=== PATIENT | female | born 1945 | race Caucasian/White ===

== ENCOUNTER 2018-08-15 11:36 | Emergency (ER) | payer OTHER ==
[~2018-08-15] VITALS: Ht 167.6 cm; Wt 82.7 kg
[2018-08-15 11:42] VITALS: BP 184/81; PULSE 81; RESP 20; Ht 167.6 cm; Wt 82.7 kg
[2018-08-15] MEDS ORDERED: ACETAMINOPHEN 500 MG TAB PO STA (13:14)
[2018-08-15] MEDS ORDERED: D-ME473S2 PO (13:16)
[2018-08-15] MEDS ORDERED: AZIT250T PO (13:16)
[2018-08-15] MEDS ORDERED: BENZ-6 PO (13:16)
[2018-08-15] MEDS ORDERED: ACET500C5 PO (13:16)
--- NOTE | 2018-08-15 13:19 | ERD ---
ER Documentation Chief Complaint Chief Complaint Complains of a cough x 5 days HPI This is a 73-year-old female with a history of hypertension presents ED with complaints of cough with sputum production times 6 days. Patient admits to some nasal congestion and mild headache. Denies fever, chills, runny nose, ear pain, sore throat, nausea, vomiting, diarrhea, constipation, abdominal pain, shortness of breath, trouble breathing, chest pain and all the symptoms. No known drug allergies. ROS All systems reviewed and are negative except as per history of present illness. Medications Home Meds Active Scripts Azithromycin* (Zithromax*) 250 Mg Tablet, 250 MG PO .ZPACK DIRECTED, #6 TAB TAKE 500 MG (2 TABS) THE FIRST DAY THEN 250 MG (1 TAB) DAYS 2-5 Prov:ANGELA BAL PA-C 08/15/18 Benzonatate* (Tessalon Perle*) 100 Mg Capsule, 100 MG PO Q8H PRN for COUGH for 3 Days, CAP Prov:ANGELA BAL PA-C 08/15/18 Acetaminophen* (Tylophen*) 500 Mg Capsule, 1 CAP PO Q6H PRN for PAIN AND OR ELEVATED TEMP, #20 CAP Prov:ANGELA BAL PA-C 08/15/18 Dextromethorphan Hb-Promethazine Hcl* (Promethazine DM* Syrup) 473 Ml Syrup, 5 ML PO Q6 PRN for COUGH for 5 Days, ML Prov:ANGELA BAL PA-C 08/15/18 Allergies Allergies: Coded Allergies: No Known Allergy (Unverified , 08/15/18) PMhx/Soc History of Surgery: No Hx Neurological Disorder: No Hx Respiratory Disorders: No Hx Alcohol Use: No Hx Substance Use: No Hx Tobacco Use: No FmHx Family History: No diabetes Physical Exam Vitals Vital Signs Date Temp Pulse Resp B/P (MAP) Pulse Ox O2 O2 Flow FiO2 Time Delivery Rate 08/15/18 98.1 81 20 184/81 97 11:42 (115) Physical Exam Physical Exam Vitals signs: Reviewed by me. General: Well developed, well nourished, in no acute distress. Patient is awake and alert. Head: Normocephalic, atraumatic. Eyes: Normal conjunctiva, Pupils PERRLA, EOM intact grossly ENT: Pharynx is clear, Moist mucous membranes, external ears, nose and mouth normal Neck: Supple, no masses, lymphadenopathy or JVD Respiratory: Clear to auscultation bilaterally with no wheezing, rhonchi, rales, no distress Cardiovascular: RRR, no murmurs, rubs, or gallops Skin: warm and dry, No rash Psych: Normal mood Results 24 hrs Current Medications Medications Dose Sig/Broderick Start Time Status Last (Trade) Ordered Route PRN Stop Time Admin Dose Reason Admin Promethazine 5 ml ONCE ONCE 08/15/18 HCl/ PO 13:30 Dextromethorp 08/15/18 13:31 tinsley (Phenergan-Dm ) Benzonatate 100 mg ONCE ONCE 08/15/18 (Tessalon) PO 13:30 08/15/18 13:31 1,000 mg ONCE STAT 08/15/18 DC Acetaminophen PO 13:14 (Tylenol 08/15/18 13:16 Tab) Procedures/MDM ER COURSE: The patient was given promethazine DM, Tessalon Perles and Tylenol The medication was well tolerated and the patient reports improvement in symptoms. The patient was stable throughout ED course. I kept the patient and/or family informed of laboratory and diagnostic imaging results throughout the emergency room course. The patient was promptly evaluated and a treatment plan was devised based on H&P and other data. This plan was discussed with the patient who agreed and had no further questions or concerns prior to discharge. MEDICAL DECISION MAKING: Symptoms are most likely consistent with acute bronchitis. Low suspicion for pneumonia, as lung sounds are clear at this time. Oxygen saturation is normal and patient does not have any respiratory distress. Advanced imaging is not indicated at this time. Low suspicion for other cardiopulmonary emergency such as pulmonary embolism, pneumothorax, tension pneumothorax, pleural effusion, pneumothorax, CHF, aortic aneurysm or other cardiopulmonary emergencies. No evidence of sepsis. Patient's vitals are stable he can be managed with close outpatient follow-up. Advised patient to follow-up with primary care in the next 48 hours. Return to ED with any worsening symptoms DISPOSITION PLAN: We discussed follow up with the patient's primary care doctor within 24 to 48 hours. Patient counseled regarding my diagnostic impression and care plan. Prior to discharge all questions answered. Pt agrees with treatment plan and understands strict return precautions. Precautionary instructions provided including instructions to return to the ER if not improving or for any worsening or changing symptoms or concerns. SPECIALIST FOLLOW UP RECOMMENDED: None Patient has been advised to follow up with primary care in 1-2 days. Disclaimer: Inadvertent spelling and grammatical errors are likely due to EHR/dictation software use and do not reflect on the overall quality of patient care. Also, please note that the electronic time recorded on this note does not necessarily reflect the actual time of the patient encounter. Blood Pressure Assessment: Patient's blood pressure was elevated (>120/80) but appears stable without evidence of hypertension emergency or urgency. The patient was counseled about the risks of hypertension and urged to pursue outpatient monitoring and therapy within a week with their primary care physician. Departure Diagnosis: Primary Impression: Acute bronchitis Bronchitis organism: unspecified organism Qualified Codes: J20.9 - Acute bronchitis, unspecified Condition: Stable Patient Instructions: Bronchitis, Antiobiotic Treatment (Adult) Referrals: [facility] YOU HAVE RECEIVED A MEDICAL SCREENING EXAM AND THE RESULTS INDICATE THAT YOU DO NOT HAVE A CONDITION THAT REQUIRES URGENT TREATMENT IN THE EMERGENCY DEPARTMENT. FURTHER EVALUATION AND TREATMENT OF YOUR CONDITION CAN WAIT UNTIL YOU ARE SEEN IN YOUR DOCTORS OFFICE WITHIN THE NEXT 1-2 DAYS. IT IS YOUR RESPONSIBILITY TO MAKE AN APPOINTMENT FOR FOLOW-UP CARE. IF YOU HAVE A PRIMARY DOCTOR --you should call your primary doctor and schedule an appointment IF YOU DO NOT HAVE A PRIMARY DOCTOR YOU CAN CALL OUR PHYSICIAN REFERRAL HOTLINE AT IF YOU CAN NOT AFFORD TO SEE A PHYSICIAN YOU CAN CHOSE FROM THE FOLLOWING [facility] [address] [facility]. [facility] [address] [facility] [address] [facility] [facility] [facility] [address] [facility] [facility]. [facility] [address] [facility]. [facility] [address] Additional Instructions: Patient advised to return to the ED immediately for new or worsening symptoms. Patient advised to follow up with primary care provider in the next 24-48 hours. Patient verbalized understanding and agrees with treatment plan and course of action. If patient has no primary care they may follow up with one of the community clinics listed on the following page or one of the options listed below [facility] + [facility] [address] [place] [address] or [facility] [address] [place] [address] or [facility] [address] [place] [address] ANGELA BAL PA-C Aug 15, 2018 13:19
[2018-08-15] MEDS ORDERED: PROMETHAZINE/DM (CUP) PO ONE (13:30)
[2018-08-15] MEDS ORDERED: BENZONATATE 100 MG CAP PO ONE (13:30)
== END 2018-08-15 13:46 | disposition home or self-care (01) ==
LOC: FTE 11:36
DX: J20.9 Acute bronchitis, unspecified (principal)
CPT/HCPCS: 99283

== ENCOUNTER 2018-08-20 14:49 | Inpatient (IN) | payer OTHER ==
[~2018-08-20] VITALS: Ht 165.1 cm; Wt 90.4 kg
[~2018-08-20 14:49] MED LIST: ACET500C5 PO; AZIT250T PO; BENZ-6 PO; D-ME473S2 PO
[2018-08-20] MEDS ORDERED: ONDANSETRON 4 MG INJ IV STA ×2 (15:18→17:09)
[2018-08-20] MEDS ORDERED: SOD CHLORIDE 0.9% 1,000 ML IV STA (15:18)
[2018-08-20] MEDS ORDERED: METO-335 PO (15:28)
[2018-08-20] MEDS ORDERED: AMLO5TAB4 PO (15:28)
[2018-08-20] MEDS ORDERED: METF500T24 PO (15:29)
[2018-08-20] MEDS ORDERED: ATOR10TA65 PO (15:29)
[2018-08-20] MEDS ORDERED: ASPI81TA52 PO (15:31)
[2018-08-20] MEDS ORDERED: LEVO25TA50 PO (15:31)
[2018-08-20] MEDS: KETOROLAC 15 MG INJ IV STA (15:33)
[2018-08-20] MEDS: ACETAMINOPHEN 325 MG TAB PO ONE ×2 (17:06→18:11)
[2018-08-20] MEDS: POTASSIUM CHLORIDE (SR) 20 MEQ TAB PO STA ×2 (17:07→18:12)
[2018-08-20] MEDS ORDERED: ONDANSETRON 4 MG INJ IV PRN (18:00)
[2018-08-20] MEDS ORDERED: ACETAMINOPHEN 325 MG TAB PO PRN (18:00)
--- NOTE | 2018-08-20 18:07 | ERD ---
ER Documentation Chief Complaint Chief Complaint abdominal pain with nasuea vomiting and diarrhea HPI Very pleasant 73-year-old female presents the emergency room with 12-24 hours of symptoms that include nonbloody nonbilious emesis, loose watery stools, mild periumbilical cramping abdominal discomfort. No recent travel sick contacts or antibiotics. Patient is unable to keep anything down today which prompted her visit to the emergency room. ROS All systems reviewed and are negative except as per history of present illness. Medications Home Meds Reported Medications Levothyroxine Sodium* (Levoxyl*) 25 Mcg Tablet, 25 MCG PO BEFORE BREAKFAST, #30 TAB 08/20/18 Aspirin (Low Dose Aspirin) 81 Mg Tablet.dr, 81 MG PO DAILY, #30 TAB 08/20/18 Metformin Hcl* (Metformin Hcl*) 500 Mg Tablet, 500 MG PO WITH BREAKFAST, #30 TAB 08/20/18 Atorvastatin Calcium (Atorvastatin Calcium) 10 Mg Tablet, 10 MG PO QHS, #30 TAB 08/20/18 Metoprolol Succinate* (Toprol XL*) 25 Mg Tab.sr.24h, 25 MG PO DAILY, #30 TAB 08/20/18 Amlodipine Besylate* (Norvasc*) 5 Mg Tablet, 5 MG PO DAILY, TAB 08/20/18 Discontinued Scripts Azithromycin* (Zithromax*) 250 Mg Tablet, 250 MG PO .WILLIAMS DIRECTED, #6 TAB TAKE 500 MG (2 TABS) THE FIRST DAY THEN 250 MG (1 TAB) DAYS 2-5 Prov:ANGELA BAL PA-C 08/15/18 Benzonatate* (Tessalon Perle*) 100 Mg Capsule, 100 MG PO Q8H PRN for COUGH for 3 Days, CAP Prov:ANGELA BAL PA-C 08/15/18 Acetaminophen* (Tylophen*) 500 Mg Capsule, 1 CAP PO Q6H PRN for PAIN AND OR ELEVATED TEMP, #20 CAP Prov:ANGELA BAL PA-C 08/15/18 Dextromethorphan Hb-Promethazine Hcl* (Promethazine DM* Syrup) 473 Ml Syrup, 5 ML PO Q6 PRN for COUGH for 5 Days, ML Prov:ANGELA BAL PA-C 08/15/18 Allergies Allergies: Coded Allergies: No Known Allergy (Unverified , 08/20/18) PMhx/Soc History of Surgery: No Hx Neurological Disorder: No Hx Respiratory Disorders: No Hx Psychiatric Problems: No Hx Alcohol Use: No Hx Substance Use: No Hx Tobacco Use: No Smoking Status: Never smoker FmHx Family History: No diabetes Physical Exam Vitals Vital Signs Date Temp Pulse Resp B/P (MAP) Pulse Ox O2 O2 Flow FiO2 Time Delivery Rate 08/20/18 88 118/58 94 Room Air 15:05 (78) 08/20/18 99.7 90 18 129/60 95 14:51 (83) Physical Exam General: Well developed, well nourished, no acute distress Head: Normocephalic, atraumatic. Eyes: Pupils equally reactive, EOM intact ENT: Moist mucous membranes Neck: Supple, no lymphadenopathy Respiratory: Lungs clear bilaterally, no distress Cardiovascular: RRR, no murmurs, rubs, or gallops Abdominal: Soft, non-tender, non-distended, no peritoneal signs, no tenderness to McBurney's point : Deferred MSK: No edema, no unilateral swelling, 5/5 strength Neurologic: Alert and oriented, moving all extremities, normal speech, no focal weakness, no cerebellar signs Skin: No rash Psych: Normal mood Result Diagram: 08/20/18 1514 08/20/18 1514 Results 24 hrs Laboratory Tests Test 08/20/18 15:14 08/20/18 15:30 White Blood Count 7.0 10^3/ul Red Blood Count 4.56 10^6/ul Hemoglobin 14.1 g/dl Hematocrit 41.7 % Mean Corpuscular Volume 91.4 fl Mean Corpuscular Hemoglobin 30.9 pg Mean Corpuscular Hemoglobin Concent 33.8 g/dl Red Cell Distribution Width 13.5 % Platelet Count 240 10^3/UL Mean Platelet Volume 10.3 fl Immature Granulocytes % 0.400 % Neutrophils % 77.6 % Lymphocytes % 14.7 % Monocytes % 7.1 % Eosinophils % 0.1 % Basophils % 0.1 % Nucleated Red Blood Cells % 0.0 /100WBC Immature Granulocytes # 0.030 10^3/ul Neutrophils # 5.4 10^3/ul Lymphocytes # 1.0 10^3/ul Monocytes # 0.5 10^3/ul Eosinophils # 0.0 10^3/ul Basophils # 0.0 10^3/ul Nucleated Red Blood Cells # 0.0 10^3/ul Sodium Level 136 mmol/L Potassium Level 3.0 mmol/L Chloride Level 100 mmol/L Carbon Dioxide Level 25 mmol/L Anion Gap 11 Blood Urea Nitrogen 19 mg/dl Creatinine 0.65 mg/dl Est Glomerular Filtrat Rate mL/min mL/min Glucose Level 133 mg/dl Calcium Level 8.0 mg/dl Total Bilirubin 0.6 mg/dl Direct Bilirubin 0.00 mg/dl Indirect Bilirubin 0.6 mg/dl Aspartate Amino Transf (AST/SGOT) 34 IU/L Alanine Aminotransferase (ALT/SGPT) 35 IU/L Alkaline Phosphatase 65 IU/L Total Protein 7.4 g/dl Albumin 4.0 g/dl Globulin 3.40 g/dl Albumin/Globulin Ratio 1.17 Lipase 52 U/L Urine Color ELLE Urine Clarity SLIGHTLY CLOUDY Urine pH 5.0 Urine Specific [place] 1.039 Urine Ketones NEGATIVE mg/dL Urine Nitrite NEGATIVE mg/dL Urine Bilirubin 1+ mg/dL Urine Urobilinogen 1+ mg/dL Urine Leukocyte Esterase NEGATIVE Liam/ul Urine Microscopic RBC 1 /HPF Urine Microscopic WBC 5 /HPF Urine Squamous Epithelial Cells FEW /HPF Urine Bacteria FEW /HPF Urine Hyaline Casts FEW /HPF Urine Mucus MANY /HPF Urine Hemoglobin NEGATIVE mg/dL Urine Glucose NEGATIVE mg/dL Urine Total Protein 1+ mg/dl Current Medications Medications Dose Sig/Broderick Start Time Status Last (Trade) Ordered Route PRN Stop Time Admin Dose Reason Admin Sodium 1,000 ml @ Q1H STAT 08/20/18 DC 08/20/18 Chloride 1,000 mls/hr IV 15:18 15:32 08/20/18 16:17 Ondansetron 4 mg ONCE STAT 08/20/18 DC 08/20/18 HCl (Zofran IV 15:18 15:33 Inj) 08/20/18 15:19 Ketorolac 15 mg ONCE STAT 08/20/18 DC Tromethamine IV 15:18 (Toradol) 08/20/18 15:19 650 mg ONCE ONCE 08/20/18 DC Acetaminophen PO 17:00 (Tylenol 08/20/18 17:01 Tab) Potassium 40 meq ONCE STAT 08/20/18 DC 08/20/18 Chloride PO 16:56 17:07 (Klor-Con 20) 08/20/18 16:58 Ondansetron 4 mg ONCE STAT 08/20/18 DC 08/20/18 HCl (Zofran IV 17:09 17:13 Inj) 08/20/18 17:10 Ondansetron 4 mg BRIDGE ORDER 08/20/18 HCl (Zofran PRN IV 18:00 Inj) NAUSEA/VOMITI 08/21/18 17:59 NG 650 mg ER BRIDGE 08/20/18 Acetaminophen PRN PO 18:00 (Tylenol .MILD PAIN 08/21/18 17:59 Tab) 1-3 OR TEMP Procedures/MDM EKG, MONITORS, & DIAGNOSTIC IMAGING: CT a/p IMPRESSION: 1. No abdominal or pelvic acute inflammatory process, mass, or lymphadenopathy. 2. Diverticulosis. 3. Moderate aortoiliac atherosclerosis. 4. Small hiatal hernia. 5. Moderate lumbar spine degenerative changes. LAB INTERPRETATION: I reviewed the laboratory testing and it shows hypokalemia MEDICAL DECISION MAKING: Patient's presentation is likely consistent with viral process including gastroenteritis. However, given the patient's age she is at risk for more serious acute intra-abdominal processes. I believe it would be appropriate to check laboratory testing and CT imaging of the abdomen and pelvis. ER COURSE: * Patient's laboratory testing is only significant for hypokalemia, oral medications given for replacement. * However, the patient has failed oral rehydration. Based on the patient's persistent symptoms, age and risk for dehydration on outpatient basis inpatient hospitalization is most appropriate for control of symptoms. CONSULTATION: [None] DISPOSITION PLAN: Admission for IV hydration Accepting care team and consultations: I discussed the current laboratory data, diagnostic imaging and emergency care provided. Admitting team: Panel team notified via [employer] Admitting team indication: Insurance directed ] Departure Diagnosis: Primary Impression: Nausea, vomiting, and diarrhea Additional Impressions: Dehydration, mild Hypokalemia Condition: Stable WRENER PISANO MD Aug 20, 2018 18:07
[2018-08-20] MEDS ORDERED: DOCUSATE SODIUM 100 MG CAP PO PRN (18:30)
[2018-08-20] MEDS ORDERED: ALBUTEROL/IPRATROPIUM (NEB) 3 ML AMP HHN PRN (18:30)
[2018-08-20] MEDS ORDERED: HYDROCODONE/APAP (5/325) TAB PO PRN (18:30)
[2018-08-20] MEDS ORDERED: NACL 0.9% 3 ML SYG IV SCH (18:30)
[2018-08-20] MEDS ORDERED: morphine 2 MG INJ IV PRN (18:30)
[2018-08-20] MEDS ORDERED: MAGNESIUM HYDROXIDE 30ML CUP PO PRN (18:30)
[2018-08-20] MEDS ORDERED: hydrALAzine 20 MG INJ IV PRN (18:30)
[2018-08-20] MEDS ORDERED: METOCLOPRAMIDE 10 MG INJ IV PRN (18:30)
[2018-08-20] MEDS ORDERED: NITROGLYCERIN (SL) 0.4 MG TAB SL PRN (18:30)
[2018-08-20] MEDS ORDERED: LORAZEPAM 2 MG INJ IV PRN (18:30)
[2018-08-20 18:47] VITALS: BP 128/60; PULSE 85; RESP 17
[2018-08-20 20:00] VITALS: BP 148/61; PULSE 90; RESP 16
[2018-08-20 20:30] VITALS: Ht 165.1 cm; Wt 90.4 kg
[2018-08-20] MEDS: SOD CHLORIDE 0.9% 1,000 ML IV SCH (20:30)
--- NOTE | 2018-08-20 20:31 | HP ---
DATE OF ADMISSION: 08/20/2018 CHIEF COMPLAINT: Abdominal pain, nausea, vomiting, diarrhea. HISTORY OF PRESENT ILLNESS: A 73-year-old female with past medical history of high cholesterol, hype rtension, possible diabetes, possible hypothyroidism who has been having nausea, vomiting and diarrhe a symptoms as well as abdominal pain. Symptoms have been going on for the last 1 day. She has notic ed some loose watery stools and abdominal discomfort. No recent travel or sick contacts. She has no t taken any antibiotics recently. She did try to take Imodium at home apparently but was unable to k eep anything down and her symptoms did not resolve. She decided to come into the ER. When she arriv ed today, her vital signs were stable. She had temperature 99.7. She was found with a low potassium of 3.0 but the rest of her labs appear to be normal. She had a CT abdomen and pelvis performed toda y that did not show any acute findings. The patient still unable to take any p.o. intake and still h aving some nausea, vomiting symptoms and mild abdominal pain. She was given IV fluids as well as minerva n medicines in the ER as well as antiemetics. PAST MEDICAL HISTORY: As stated above. ALLERGIES: NO KNOWN DRUG ALLERGIES. HOME MEDICATIONS: 1. Norvasc 5 mg daily. 2. Atorvastatin 10 mg at bedtime. 3. Toprol-XL 25 mg daily. 4. Aspirin 81 mg daily. 5. Levoxyl 25 mcg every morning. 6. Metformin 500 mg every morning. SOCIAL HISTORY: Negative for smoking or drinking or IV drug abuse. PAST SURGICAL HISTORY: None. FAMILY HISTORY: Noncontributory. PHYSICAL EXAMINATION: VITAL SIGNS: T-max 99.7, pulse 80 to 90, respirations 18, blood pressure 129/60, satting at 95% room air. GENERAL: The patient lying in bed, no acute distress. HEENT: Pupils are equal, round, reactive to light. Extraocular muscles are intact. NECK: Supple, no thyromegaly. LUNGS: Clear to auscultation bilaterally. CARDIOVASCULAR: S1, S2 heard. No rubs or gallops. ABDOMEN: Soft, nontender, nondistended. Normal bowel sounds. No rebound or guarding. MUSCULOSKELETAL: No lower extremity edema bilaterally. NEUROLOGIC: No focal deficits. LABORATORIES: CBC is completely normal. Again, the basic metabolic panel is normal except the potas sium is 3.0. Lipase is normal. UA shows negative nitrites, negative leukocyte esterase, few bacteri a. We mentioned CT abdomen and pelvis findings. ASSESSMENT AND PLAN: A 73-year-old female with abdominal pain, nausea, vomiting, diarrhea for 1 day, signs of possible viral gastroenteritis. 1. Abdominal pain, nausea, vomiting, diarrhea. Again, symptoms likely secondary to viral gastroente ritis. CT abdomen and pelvis results noted with no acute findings. Admit the patient for IV fluids, antiemetic medications as needed. Pain control medications as needed. Consider PT consult as well. Follow up TSH, A1c, lipid panel. If patient has any more worsening diarrhea, we will consider send ing for stool studies at this time, but patient does not have any leukocytosis or fevers at this time . We will replete her low potassium as well. 2. History of hypothyroidism. Follow up thyroid panel. Continue Synthroid. 3. History of high cholesterol. Follow up lipid panel. Continue statin. 4. Hypertension. Blood pressure stable. Continue home blood pressure medicines. Monitor for now. 5. Gastrointestinal prophylaxis. PPI. 6. DVT prophylaxis. Looks like will do heparin for now. Dictated By: JUAN DAVID FOWLER Conf#: [id number] DID#: [id number]
[2018-08-20] MEDS: ATORVASTATIN 10 MG TAB PO SCH (20:39)
[2018-08-20] MEDS: POTASSIUM CHLORIDE 50 ML IVPB SCH ×2 (21:22→22:59)
[2018-08-20] MEDS: ONDANSETRON 4 MG INJ IV PRN (23:03)
[2018-08-21] MEDS: POTASSIUM CHLORIDE 50 ML IVPB SCH (00:56)
[2018-08-21 01:35] VITALS: BP 116/66; PULSE 104; RESP 16
[2018-08-21] MEDS: ACETAMINOPHEN 325 MG TAB PO PRN ×3 (01:47→22:24)
[2018-08-21] MEDS: LEVOTHYROXINE 25 MCG TAB PO SCH (06:34)
[2018-08-21] MEDS: PANTOPRAZOLE (EC) 40 MG TAB PO SCH (06:34)
[2018-08-21] MEDS ORDERED: HYDR12.58 PO (07:03)
[2018-08-21 07:21] VITALS: BP 118/57; PULSE 84; RESP 20
[2018-08-21 09:16] VITALS: BP 134/61; PULSE 87
[2018-08-21] MEDS: METOPROLOL (XL) 25 MG TAB PO SCH (09:18)
[2018-08-21] MEDS: AMLODIPINE 5 MG TAB PO SCH (09:18)
[2018-08-21] MEDS: ASPIRIN (EC) 81 MG TAB PO SCH (09:18)
[2018-08-21] MEDS: ONDANSETRON 4 MG INJ IV PRN (10:21)
[2018-08-21] MEDS: SOD CHLORIDE 0.9% 1,000 ML IV SCH ×2 (11:26→20:53)
--- NOTE | 2018-08-21 12:37 | PN ---
Date/Time of Note Date/Time of Note DATE: 08/21/18 TIME: 12:34 Assessment/Plan VTE Prophylaxis Risk score (from Ns)>0 risk: 2 SCD applied (from Ns): No SCD contraindicated: other Pharmacological prophylaxis: heparin Lines/Catheters IV Catheter Type (from [facility]): Peripheral IV Assessment/Plan Hospital Course S: Patient apparently had fever last night 1-2.1, afebrile this morning. Still with some loose stools but less than before admission. Less vomiting symptoms as well. O: VS - see below PHYSICAL EXAMINATION: GENERAL: lying in bed, no acute distress. HEENT: Pupils are equal, round, reactive to light. Extraocular muscles are intact. NECK: Supple, no thyromegaly. LUNGS: Clear to auscultation bilaterally. CARDIOVASCULAR: S1, S2 heard. No rubs or gallops. ABDOMEN: Soft, nontender, nondistended. Normal bowel sounds. No rebound or guarding. MUSCULOSKELETAL: No lower extremity edema bilaterally. NEUROLOGIC: No focal deficits. ASSESSMENT AND PLAN: 73-year-old female with abdominal pain, nausea, vomiting, diarrhea for 1 day prior to admission, fevers - signs of possible viral gastroenteritis versus other source of infection 1. Abdominal pain, nausea, vomiting, diarrhea.-Symptoms still present but slowly improving, possibly secondary to gastroenteritis versus other source of infection. CT abdomen and pelvis results noted with no acute findings -We will start soft diet, for now continue IV fluids, antiemetic medications as needed. Pain control medications as needed. -Follow-up results of chest x-ray and blood cultures which are pending. Of note UA was negative. -Will get PT consult as well. -If patient has any more worsening diarrhea, we will consider sending for stool studies at this time, but patient does not have any leukocytosis or fevers at this time. 2. History of hypothyroidism. Follow up thyroid panel. - Continue Synthroid. 3. History of high cholesterol. Follow up lipid panel. - Continue statin. 4. Hypertension. Blood pressure stable. - Continue home blood pressure medicines. Monitor for now. 5. Gastrointestinal prophylaxis. PPI. 6. DVT prophylaxis- heparin Result Diagram: 08/21/18 0308 08/21/18 0308 Results 24hrs Laboratory Tests Test 08/20/18 15:14 08/20/18 15:30 3/17/19 03:08 White Blood Count 7.0 5.8 Red Blood Count 4.56 4.32 Hemoglobin 14.1 13.1 Hematocrit 41.7 39.7 Mean Corpuscular Volume 91.4 91.9 Mean Corpuscular Hemoglobin 30.9 30.3 Mean Corpuscular 33.8 33.0 Hemoglobin Concent Red Cell Distribution Width 13.5 13.6 Platelet Count 240 213 Mean Platelet Volume 10.3 9.6 Immature Granulocytes % 0.400 0.200 Neutrophils % 77.6 H 79.1 H Lymphocytes % 14.7 L 12.8 L Monocytes % 7.1 7.5 Eosinophils % 0.1 0.2 Basophils % 0.1 0.2 Nucleated Red Blood Cells % 0.0 0.0 Immature Granulocytes # 0.030 0.010 Neutrophils # 5.4 4.6 Lymphocytes # 1.0 0.7 L Monocytes # 0.5 0.4 Eosinophils # 0.0 0.0 Basophils # 0.0 0.0 Nucleated Red Blood Cells # 0.0 0.0 Sodium Level 136 136 Potassium Level 3.0 L 3.5 Chloride Level 100 103 Carbon Dioxide Level 25 24 Anion Gap 11 9 Blood Urea Nitrogen 19 14 Creatinine 0.65 0.60 Est Glomerular Filtrat Rate mL/min Glucose Level 133 112 Calcium Level 8.0 L 7.5 L Total Bilirubin 0.6 Direct Bilirubin 0.00 Indirect Bilirubin 0.6 Aspartate Amino 34 Transf (AST/SGOT) Alanine 35 Aminotransferase (ALT/SGPT) Alkaline Phosphatase 65 Total Protein 7.4 Albumin 4.0 Globulin 3.40 H Albumin/Globulin Ratio 1.17 Lipase 52 Free Thyroxine 1.31 Urine Color ELLE Urine Clarity SLIGHTLY CLOUDY A Urine pH 5.0 Urine Specific [place] 1.039 H Urine Ketones NEGATIVE Urine Nitrite NEGATIVE Urine Bilirubin 1+ H Urine Urobilinogen 1+ H Urine Leukocyte Esterase NEGATIVE Urine Microscopic RBC 1 Urine Microscopic WBC 5 Urine Squamous FEW Epithelial Cells Urine Bacteria FEW A Urine Hyaline Casts FEW A Urine Mucus MANY A Urine Hemoglobin NEGATIVE Urine Glucose NEGATIVE Urine Total Protein 1+ H Hemoglobin A1c 6.3 H Phosphorus Level 3.1 Magnesium Level 2.0 Triglycerides Level 96 Cholesterol Level 134 LDL Cholesterol, Calculated 67 HDL Cholesterol 48 Cholesterol/HDL Ratio 2.7 Thyroid Stimulating 0.068 L Hormone (TSH) Exam/Review of Systems Exam Vitals Vital Signs Date Temp Pulse Resp B/P (MAP) Pulse Ox O2 O2 Flow FiO2 Time Delivery Rate 08/21/18 87 134/61 09:16 (85) 08/21/18 98.4 20 97 07:21 08/20/18 Room Air 18:47 Intake and Output 08/20/18 08/20/18 08/21/18 1515:00 23:00 07:00 IntakeIntake Total 50 ml 250 ml BalanceBalance 50 ml 250 ml Results Results 24hrs Laboratory Tests Test 08/20/18 15:14 08/20/18 15:30 08/21/18 03:08 White Blood Count 7.0 5.8 Red Blood Count 4.56 4.32 Hemoglobin 14.1 13.1 Hematocrit 41.7 39.7 Mean Corpuscular Volume 91.4 91.9 Mean Corpuscular Hemoglobin 30.9 30.3 Mean Corpuscular 33.8 33.0 Hemoglobin Concent Red Cell Distribution Width 13.5 13.6 Platelet Count 240 213 Mean Platelet Volume 10.3 9.6 Immature Granulocytes % 0.400 0.200 Neutrophils % 77.6 H 79.1 H Lymphocytes % 14.7 L 12.8 L Monocytes % 7.1 7.5 Eosinophils % 0.1 0.2 Basophils % 0.1 0.2 Nucleated Red Blood Cells % 0.0 0.0 Immature Granulocytes # 0.030 0.010 Neutrophils # 5.4 4.6 Lymphocytes # 1.0 0.7 L Monocytes # 0.5 0.4 Eosinophils # 0.0 0.0 Basophils # 0.0 0.0 Nucleated Red Blood Cells # 0.0 0.0 Sodium Level 136 136 Potassium Level 3.0 L 3.5 Chloride Level 100 103 Carbon Dioxide Level 25 24 Anion Gap 11 9 Blood Urea Nitrogen 19 14 Creatinine 0.65 0.60 Est Glomerular Filtrat Rate mL/min Glucose Level 133 112 Calcium Level 8.0 L 7.5 L Total Bilirubin 0.6 Direct Bilirubin 0.00 Indirect Bilirubin 0.6 Aspartate Amino 34 Transf (AST/SGOT) Alanine 35 Aminotransferase (ALT/SGPT) Alkaline Phosphatase 65 Total Protein 7.4 Albumin 4.0 Globulin 3.40 H Albumin/Globulin Ratio 1.17 Lipase 52 Free Thyroxine 1.31 Urine Color ELLE Urine Clarity SLIGHTLY CLOUDY A Urine pH 5.0 Urine Specific [place] 1.039 H Urine Ketones NEGATIVE Urine Nitrite NEGATIVE Urine Bilirubin 1+ H Urine Urobilinogen 1+ H Urine Leukocyte Esterase NEGATIVE Urine Microscopic RBC 1 Urine Microscopic WBC 5 Urine Squamous FEW Epithelial Cells Urine Bacteria FEW A Urine Hyaline Casts FEW A Urine Mucus MANY A Urine Hemoglobin NEGATIVE Urine Glucose NEGATIVE Urine Total Protein 1+ H Hemoglobin A1c 6.3 H Phosphorus Level 3.1 Magnesium Level 2.0 Triglycerides Level 96 Cholesterol Level 134 LDL Cholesterol, Calculated 67 HDL Cholesterol 48 Cholesterol/HDL Ratio 2.7 Thyroid Stimulating 0.068 L Hormone (TSH) Medications Medication Current Medications IV Flush (NS 3 ml) 3 ml PER PROTOCOL IV ; Start 08/20/18 at 18:30 Ondansetron HCl (Zofran Inj) 4 mg Q6H PRN IV NAUSEA/VOMITING Last administered on 08/21/18at 10:21; Admin Dose 4 MG; Start 08/20/18 at 18:30 Metoclopramide HCl (Reglan) 5 mg Q6H PRN IV NAUSEA/VOMITING; Start 08/20/18 at 18:30 Acetaminophen (Tylenol Tab) 650 mg Q6H PRN PO .PAIN 1-3 OR TEMP Last administered on 08/21/18at 10:37; Admin Dose 650 MG; Start 08/20/18 at 18:30 Acetaminophen/ Hydrocodone Bitart ([place] (5/325)) 1 tab Q6H PRN PO .MOD PAIN 4- 6; Start 08/20/18 at 18:30 Morphine Sulfate (morphine) 2 mg Q4H PRN IV .SEVERE PAIN 7-10; Start 08/20/18 at 18:30 Docusate Sodium (Colace) 100 mg Q12H PRN PO .CONSTIPATION; Start 08/20/18 at 18:30 Magnesium Hydroxide (Milk Of Mag) 30 ml DAILY PRN PO .CONSTIPATION; Start 08/20/18 at 18:30 Pantoprazole (Protonix Tab) 40 mg DAILY@06 PO Last administered on 08/21/18at 06:34; Admin Dose 40 MG; Start 08/21/18 at 06:00 Lorazepam (Ativan) 0.5 mg Q6H PRN IV ANXIETY; Start 08/20/18 at 18:30 Sodium Chloride 1,000 ml @ 75 mls/hr [id number] IV Last administered on 08/21/18at 11:26; Admin Dose 75 MLS/HR; Start 08/20/18 at 18:13 Albuterol/ Ipratropium (Duoneb) 3 ml Q4H RESP THERAPY PRN HHN SHORTNESS OF BREATH; Start 08/20/18 at 18:30 Hydralazine HCl (Apresoline) 10 mg Q6H PRN IV ELEVATED BLOOD PRESSURE; Start 08/20/18 at 18:30 Nitroglycerin (Nitroglycerin (Sl Tab) 0.4 Mg) 1 tab Q5M PRN SL ANGINA; Start 08/20/18 at 18:30 Amlodipine Besylate (Norvasc) 5 mg DAILY PO Last administered on 08/21/18at 09:18; Admin Dose 5 MG; Start 08/21/18 at 09:00 Aspirin (Halfprin) 81 mg DAILY PO Last administered on 08/21/18at 09:18; Admin Dose 81 MG; Start 08/21/18 at 09:00 Atorvastatin Calcium (Lipitor) 10 mg QHS PO ; Start 08/20/18 at 21:00 Levothyroxine Sodium (Synthroid) 25 mcg BEFORE BREAKFAST PO Last administered on 08/21/18at 06:34; Admin Dose 25 MCG; Start 08/21/18 at 07:00 Metoprolol Succinate (Toprol Xl) 25 mg DAILY PO Last administered on 08/21/18at 09:18; Admin Dose 25 MG; Start 08/21/18 at 09:00 JUAN DAVID LAMA Aug 21, 2018 12:37
[2018-08-21 14:07] VITALS: BP 109/54; PULSE 76; RESP 20
[2018-08-21 19:26] VITALS: BP 115/60; PULSE 82; RESP 19
[2018-08-21] MEDS: ATORVASTATIN 10 MG TAB PO SCH (21:17)
[2018-08-22 02:00] VITALS: BP 121/60; PULSE 72; RESP 19
[2018-08-22] MEDS: SOD CHLORIDE 0.9% 1,000 ML IV SCH ×3 (02:19→15:47)
[2018-08-22] MEDS: LEVOTHYROXINE 25 MCG TAB PO SCH (06:18)
[2018-08-22] MEDS: PANTOPRAZOLE (EC) 40 MG TAB PO SCH (06:18)
[2018-08-22 07:26] VITALS: BP 147/71; PULSE 82; RESP 20
[2018-08-22] MEDS: ONDANSETRON 4 MG INJ IV PRN (08:56)
[2018-08-22] MEDS: ASPIRIN (EC) 81 MG TAB PO SCH (08:58)
[2018-08-22] MEDS: METOPROLOL (XL) 25 MG TAB PO SCH (08:59)
[2018-08-22] MEDS: AMLODIPINE 5 MG TAB PO SCH (08:59)
--- NOTE | 2018-08-22 11:48 | PN ---
Date/Time of Note Date/Time of Note DATE: 08/22/18 TIME: 11:33 Assessment/Plan VTE Prophylaxis Risk score (from Ns)>0 risk: 2 SCD applied (from Ns): Yes Pharmacological prophylaxis: heparin Lines/Catheters IV [facility] Type (from [facility] Peripheral IV Urinary Cath still in place: No Assessment/Plan Assessment/Plan 1. Acute gastroenteritis, levaquin, protonix, IVF 2. HTN, stable 3. Hypothyroidism, on synthroid 4. Dyslipidemia, on statin 5. DVT prophylaxis- heparin Result Diagram: 08/22/18 0442 08/22/18 0442 Results 24hrs Laboratory Tests Test 08/22/18 04:42 White Blood Count 3.6 #L Red Blood Count 4.15 L Hemoglobin 12.7 Hematocrit 38.5 Mean Corpuscular Volume 92.8 Mean Corpuscular Hemoglobin 30.6 Mean Corpuscular Hemoglobin Concent 33.0 Red Cell Distribution Width 13.7 Platelet Count 199 Mean Platelet Volume 10.9 H Immature Granulocytes % 0.300 Neutrophils % 47.5 Lymphocytes % 36.7 Monocytes % 14.6 H Eosinophils % 0.6 Basophils % 0.3 Nucleated Red Blood Cells % 0.0 Immature Granulocytes # 0.010 Neutrophils # 1.7 Lymphocytes # 1.3 Monocytes # 0.5 Eosinophils # 0.0 Basophils # 0.0 Nucleated Red Blood Cells # 0.0 Sodium Level 141 Potassium Level 3.5 Chloride Level 107 Carbon Dioxide Level 27 Anion Gap 7 Blood Urea Nitrogen 5 #L Creatinine 0.47 Est Glomerular Filtrat Rate mL/min Glucose Level 87 Calcium Level 7.5 L Subjective 24 Hr Interval Summary Free Text/Dictation still has epigastric pain with nausea, vomited several times this morning, no diarrhea today Exam/Review of Systems Exam Vitals Vital Signs Date Temp Pulse Resp B/P (MAP) Pulse Ox O2 O2 Flow FiO2 Time Delivery Rate 08/22/18 98.5 82 20 147/71 96 07:26 (96) 08/20/18 Room Air 18:47 Intake and Output 08/21/18 08/21/18 08/22/18 1414:59 22:59 06:59 IntakeIntake Total 350 ml 480 ml 1780 ml OutputOutput Total 750 ml 701 ml 3 ml BalanceBalance -400 ml -221 ml 1777 ml Constitutional: alert, oriented, well developed Psych: no complaints, nl mood/affect Head: normocephalic, atraumatic Eyes: nl conjunctiva, EOMI, nl lids, PERRL ENMT: nl external ears & nose, nl lips & teeth, nl nasal mucosa & septum Neck: supple, non-tender Respiratory: clear to auscultation, normal air movement; No congested cough, No crackles/rales, No diminished breath sounds, No intercostal retraction, No labored breathing, No respirations, No tactile fremitus, No wheezing, No other Cardiovascular: regular rate and rhythm, nl pulses; No bruits, No diastolic murmur, No edema, No gallop, No irregular rhythm, No jugular venous distention (JVD), No murmurs/extra sounds, No rub, No systolic murmur, No S3, No S4, No other Gastrointestinal: soft, nl liver, spleen, tender (epigastric) Musculoskeletal: nl extremities to inspection Extremities: normal pulses; No calf tenderness, No cyanosis, No clubbing, No edema, No pitting pedal edema, No palpable cord, No tenderness, No other Neurological: DESIGN DIRECTOR II-XII intact, nl mental status, nl speech, nl strength Results Results 24hrs Laboratory Tests Test 08/22/18 04:42 White Blood Count 3.6 #L Red Blood Count 4.15 L Hemoglobin 12.7 Hematocrit 38.5 Mean Corpuscular Volume 92.8 Mean Corpuscular Hemoglobin 30.6 Mean Corpuscular Hemoglobin Concent 33.0 Red Cell Distribution Width 13.7 Platelet Count 199 Mean Platelet Volume 10.9 H Immature Granulocytes % 0.300 Neutrophils % 47.5 Lymphocytes % 36.7 Monocytes % 14.6 H Eosinophils % 0.6 Basophils % 0.3 Nucleated Red Blood Cells % 0.0 Immature Granulocytes # 0.010 Neutrophils # 1.7 Lymphocytes # 1.3 Monocytes # 0.5 Eosinophils # 0.0 Basophils # 0.0 Nucleated Red Blood Cells # 0.0 Sodium Level 141 Potassium Level 3.5 Chloride Level 107 Carbon Dioxide Level 27 Anion Gap 7 Blood Urea Nitrogen 5 #L Creatinine 0.47 Est Glomerular Filtrat Rate mL/min Glucose Level 87 Calcium Level 7.5 L Medications Medication Current Medications IV Flush (NS 3 ml) 3 ml PER PROTOCOL IV ; Start 08/20/18 at 18:30 Ondansetron HCl (Zofran Inj) 4 mg Q6H PRN IV NAUSEA/VOMITING Last administered on 08/22/18at 08:56; Admin Dose 4 MG; Start 08/20/18 at 18:30 Metoclopramide HCl (Reglan) 5 mg Q6H PRN IV NAUSEA/VOMITING; Start 08/20/18 at 18:30 Acetaminophen (Tylenol Tab) 650 mg Q6H PRN PO .PAIN 1-3 OR TEMP Last administered on 08/21/18at 22:24; Admin Dose 650 MG; Start 08/20/18 at 18:30 Acetaminophen/ Hydrocodone Bitart ([place] (5/325)) 1 tab Q6H PRN PO .MOD PAIN 4- 6; Start 08/20/18 at 18:30 Morphine Sulfate (morphine) 2 mg Q4H PRN IV .SEVERE PAIN 7-10; Start 08/20/18 at 18:30 Docusate Sodium (Colace) 100 mg Q12H PRN PO .CONSTIPATION; Start 08/20/18 at 18:30 Magnesium Hydroxide (Milk Of Mag) 30 ml DAILY PRN PO .CONSTIPATION; Start 08/20/18 at 18:30 Pantoprazole (Protonix Tab) 40 mg DAILY@06 PO Last administered on 08/22/18at 06:18; Admin Dose 40 MG; Start 08/21/18 at 06:00 Lorazepam (Ativan) 0.5 mg Q6H PRN IV ANXIETY; Start 08/20/18 at 18:30 Sodium Chloride 1,000 ml @ 75 mls/hr [id number] IV Last administered on 08/22/18at 02:19; Admin Dose 75 MLS/HR; Start 08/20/18 at 18:13 Albuterol/ Ipratropium (Duoneb) 3 ml Q4H RESP THERAPY PRN HHN SHORTNESS OF BREATH; Start 08/20/18 at 18:30 Hydralazine HCl (Apresoline) 10 mg Q6H PRN IV ELEVATED BLOOD PRESSURE; Start 08/20/18 at 18:30 Nitroglycerin (Nitroglycerin (Sl Tab) 0.4 Mg) 1 tab Q5M PRN SL ANGINA; Start 08/20/18 at 18:30 Amlodipine Besylate (Norvasc) 5 mg DAILY PO Last administered on 08/22/18at 08:59; Admin Dose 5 MG; Start 08/21/18 at 09:00 Aspirin (Halfprin) 81 mg DAILY PO Last administered on 08/22/18 08:58; Admin Dose 81 MG; Start 08/21/18 at 09:00 Atorvastatin Calcium (Lipitor) 10 mg QHS PO Last administered on 08/21/18 21:17; Admin Dose 10 MG; Start 08/20/18 at 21:00 Levothyroxine Sodium (Synthroid) 25 mcg BEFORE BREAKFAST PO Last administered on 08/22/18 06:18; Admin Dose 25 MCG; Start 08/21/18 at 07:00 Metoprolol Succinate (Toprol Xl) 25 mg DAILY PO Last administered on 08/22/18 08:59; Admin Dose 25 MG; Start 08/21/18 at 09:00 ADARSH DOWLING MD Aug 22, 2018 11:48
[2018-08-22 13:43] VITALS: BP 118/56; PULSE 80; RESP 20
[2018-08-22] MEDS: LEVOFLOXACIN 250 MG TAB NGT SCH (13:54)
[2018-08-22 19:43] VITALS: BP 132/82; PULSE 88; RESP 20
[2018-08-22] MEDS: ATORVASTATIN 10 MG TAB PO SCH (21:04)
[2018-08-22] MEDS: ACETAMINOPHEN 325 MG TAB PO PRN (21:12)
[2018-08-23 02:00] VITALS: BP 129/77; PULSE 70; RESP 18
[2018-08-23] MEDS: LEVOFLOXACIN 250 MG TAB NGT SCH (05:34)
[2018-08-23] MEDS: LEVOTHYROXINE 25 MCG TAB PO SCH (05:35)
[2018-08-23] MEDS: PANTOPRAZOLE (EC) 40 MG TAB PO SCH (05:35)
[2018-08-23] MEDS: SOD CHLORIDE 0.9% 1,000 ML IV SCH (05:41)
[2018-08-23 07:17] VITALS: BP 135/70; PULSE 63; RESP 20
[2018-08-23] MEDS: ASPIRIN (EC) 81 MG TAB PO SCH (08:56)
[2018-08-23] MEDS: AMLODIPINE 5 MG TAB PO SCH (08:57)
[2018-08-23] MEDS: METOPROLOL (XL) 25 MG TAB PO SCH (08:57)
[2018-08-23] MEDS ORDERED: POTASSIUM CHLORIDE (SR) 20 MEQ TAB PO STA ×2 (12:18→13:36)
--- NOTE | 2018-08-23 13:54 | DS ---
Date/Time of Note Date/Time of Note DATE: 08/23/18 TIME: 13:52 Discharge Summary Admission/Discharge Info Admit Date/Time Aug 22, 2018 at 12:21 Discharge Date/Time Discharge Diagnosis 1. Acute gastroenteritis, resolved 2. HTN, stable 3. Hypothyroidism, on synthroid 4. Dyslipidemia, on statin Patient Condition: Stable Hospital Course A 73-year-old female with past medical history of high cholesterol, hypertension, possible diabetes, possible hypothyroidism who has been having nausea, vomiting and diarrhea symptoms as well as abdominal pain. Symptoms have been going on for the last 1 day. She has noticed some loose watery stools and abdominal discomfort. No recent travel or sick contacts. She has not taken any antibiotics recently. She did try to take Imodium at home apparently but was unable to keep anything down and her symptoms did not resolve. She decided to come into the ER. When she arrived today, her vital signs were stable. She had temperature 99.7. She was found with a low potassium of 3.0 but the rest of her labs appear to be normal. She had a CT abdomen and pelvis performed today that did not show any acute findings. The patient still unable to take any p.o. intake and still having some nausea, vomiting symptoms and mild abdominal pain. She was given IV fluids as well as pain medicines in the ER as well as antiemetics. Patient is treated with IVF and protonix for acute gastroenteritis, she also got levaquin. Symptoms improved and she tolerates diet. She will follow up with PCP in one week Home Meds Reported Medications Hydrochlorothiazide* (Hydrochlorothiazide*) 12.5 Mg Tablet, 12.5 MG PO DAILY 08/21/18 Levothyroxine Sodium* (Levoxyl*) 25 Mcg Tablet, 25 MCG PO BEFORE BREAKFAST, #30 TAB 08/20/18 Aspirin (Low Dose Aspirin) 81 Mg Tablet.dr, 81 MG PO DAILY, #30 TAB 08/20/18 Metformin Hcl* (Metformin Hcl*) 500 Mg Tablet, 500 MG PO WITH BREAKFAST, #30 TAB 08/20/18 Atorvastatin Calcium (Atorvastatin Calcium) 10 Mg Tablet, 10 MG PO QHS, #30 TAB 08/20/18 Metoprolol Succinate* (Toprol XL*) 25 Mg Tab.sr.24h, 25 MG PO DAILY, #30 TAB 08/20/18 Amlodipine Besylate* (Norvasc*) 5 Mg Tablet, 5 MG PO DAILY, TAB 08/20/18 Discontinued Scripts Azithromycin* (Zithromax*) 250 Mg Tablet, 250 MG PO .WILLIAMS DIRECTED, #6 TAB TAKE 500 MG (2 TABS) THE FIRST DAY THEN 250 MG (1 TAB) DAYS 2-5 Prov:ANGELA BAL PA-C 08/15/18 Benzonatate* (Tessalon Perle*) 100 Mg Capsule, 100 MG PO Q8H PRN for COUGH for 3 Days, CAP Prov:ANGELA BAL PA-C 08/15/18 Acetaminophen* (Tylophen*) 500 Mg Capsule, 1 CAP PO Q6H PRN for PAIN AND OR ELEVATED TEMP, #20 CAP Prov:ANGELA BAL PA-C 08/15/18 Dextromethorphan Hb-Promethazine Hcl* (Promethazine DM* Syrup) 473 Ml Syrup, 5 ML PO Q6 PRN for COUGH for 5 Days, ML Prov:ANGELA BAL PA-C 08/15/18 Follow-up Plan PCP in one week Primary Care Provider Care Physician No Primary Pending Labs Laboratory Tests Test 08/23/18 05:24 White Blood Count 3.1 10^3/ul (4.8-10.8) Red Blood Count 4.25 10^6/ul (4.20-5.40) Hemoglobin 13.1 g/dl (12.0-16.0) Hematocrit 39.3 % (37.0-47.0) Mean Corpuscular Volume 92.5 fl (82.0-101.0) Mean Corpuscular Hemoglobin 30.8 pg (29.0-33.0) Mean Corpuscular Hemoglobin Concent 33.3 g/dl (32.0-37.0) Red Cell Distribution Width 13.2 % (11.5-14.5) Platelet Count 208 10^3/UL (140-415) Mean Platelet Volume 10.6 fl (7.4-10.4) Immature Granulocytes % 0.300 % (0.001-0.429) Neutrophils % 35.6 % (39.0-77.0) Lymphocytes % 44.8 % (15.0-51.0) Monocytes % 17.7 % (0.0-11.0) Eosinophils % 1.3 % (0.0-7.0) Basophils % 0.3 % (0.0-2.0) Nucleated Red Blood Cells % 0.0 /100WBC (0.0-0.0) Immature Granulocytes # 0.010 10^3/ul (0.0-0.031) Neutrophils # 1.1 10^3/ul (1.6-7.5) Lymphocytes # 1.4 10^3/ul (0.8-2.9) Monocytes # 0.6 10^3/ul (0.3-0.9) Eosinophils # 0.0 10^3/ul (0.0-0.5) Basophils # 0.0 10^3/ul (0.0-0.1) Nucleated Red Blood Cells # 0.0 10^3/ul (0.0-0.0) Sodium Level 142 mmol/L (135-144) Potassium Level 3.1 mmol/L (3.5-5.1) Chloride Level 105 mmol/L (97-110) Carbon Dioxide Level 27 mmol/L (21-31) Anion Gap 10 (5-13) Blood Urea Nitrogen 5 mg/dl (7-20) Creatinine 0.47 mg/dl (0.44-1.00) Est Glomerular Filtrat Rate mL/min mL/min (>60) Glucose Level 97 mg/dl (70-220) Calcium Level 7.7 mg/dl (8.4-10.2) Magnesium Level 2.3 mg/dl (1.7-2.5) ADARSH DOWLING MD Aug 23, 2018 13:54
[2018-08-23 14:24] VITALS: BP 119/62; PULSE 68; RESP 20
== END 2018-08-23 16:50 | disposition home or self-care (01) | DRG 392 ==
LOC: E/R 14:49 → 2NE 17:55 → OBSVTOIN 08-22 12:21
PROVIDERS: ADMIT Hospitalist; ATTEND Internal Medicine
DX: A08.4 Viral intestinal infection, unspecified (principal); E86.0 Dehydration; E03.9 Hypothyroidism, unspecified; E87.6 Hypokalemia; E78.5 Hyperlipidemia, unspecified; I10 Essential (primary) hypertension; R11.2 Nausea with vomiting, unspecified; R10.13 Epigastric pain; Z79.82 Long term (current) use of aspirin
CPT/HCPCS: 36415; 71045; 74176; 80048; 80053; 80061; 81001; 83036; 83690; 83735; 84100; 84439; 84443; 85025; 87040; 87086; 96374; 96375; 96376; 97161; 97166; G0378; J1885; J2405; J3480; J7030